=== PATIENT | female | born 2000 | race Caucasian/White ===

== ENCOUNTER 2025-03-06 20:12 | Inpatient (IN) ==
[2025-03-06] MEDS ORDERED: TRANEXAMIC ACID IN NACL 1,000 MG/100 ML BAG IV PRN (20:50)
[2025-03-06] MEDS ORDERED: CARBOPROST TROMETHAMINE 250 MCG/ML VIAL IM PRN (20:50)
[2025-03-06] MEDS ORDERED: hydrALAZINE INJ 20 MG/ML VIAL IVP PRN (20:50)
[2025-03-06] MEDS ORDERED: TERBUTALINE 1 MG/ML VIAL SUBQ PRN (20:50)
[2025-03-06] MEDS ORDERED: miSOPROStoL 200 MCG TABLET PR PRN (20:50)
[2025-03-06] MEDS ORDERED: NIFEdipine 10 MG CAPSULE PO PRN (20:50)
[2025-03-06] MEDS ORDERED: lidocaine 1% 20 ML MDV ID PRN (20:50)
[2025-03-06] MEDS ORDERED: LACTATED RINGERS 1,000 ML IV PRN (20:50)
[2025-03-06] MEDS ORDERED: METHYLERGONOVINE 0.2 MG/ML VIAL IM PRN (20:50)
[2025-03-06] MEDS ORDERED: LABETALOL 20 MG/4 ML SYRINGE IVP PRN ×3 (20:50)
[2025-03-06] MEDS ORDERED: miSOPROStoL 200 MCG TABLET BC PRN (20:50)
[2025-03-06] MEDS ORDERED: OXYTOCIN 10 UNIT/ML VIAL IM PRN (20:50)
[2025-03-06] MEDS ORDERED: SODIUM CHLORIDE FLUSH 0.9% 10 ML SYRINGE IVP PRN (20:50)
[2025-03-06] MEDS ORDERED: OXYTOCIN/SODIUM CHLORIDE 500 ML IV PRN (20:50)
[2025-03-06] MEDS ORDERED: fentaNYL 100 MCG/2 ML VIAL IVP PRN (20:50)
[2025-03-06] MEDS: SODIUM CHLORIDE FLUSH 0.9% 10 ML SYRINGE IVP SCH (21:06)
--- NOTE | 2025-03-06 21:40 | HISTORY & PHYSICAL EXAMINATION ---
Admit History Smoking Status: Never smoker Meds/Allgy Home Medications Ambulatory Orders Medication Instructions Recorded Confirmed vits no.126-ferrous fum tab PO 09/07/2403/06 28 mg iron-folic acid 800 mcg tablet (Classic ) metoclopramide HCl 5 mg tablet 5 mg PO Q6H PRN nausea and 12/04/24 03/06/25 (Reglan) vomiting #30 tabs hydrocodone 5 mg-acetaminophen 325 1 - 2 tab PO Q4H [place] N pain #14 tabs 01/14/25 03/06/25 mg tablet gabapentin 100 mg capsule 100 mg PO BID abdominal pain #14 01/15/25 03/06/25 caps ferrous gluconate 236 mg (27 mg 236 mg PO .Every other Day #90 tabs 02/06/25 03/06/25 iron) tablet Allergies Allergies Allergy/AdvReac Type Severity Reaction Status Date / Time No Known Drug Allergies Allergy Verified 03/06/25 16:23 PFSH Active Problems All Active Problems (Updated 03/06/25 @ 16:52 by Shelbie Balderas CNM, AUDIO VISUAL EQUIPMENT RENTAL CLERK) Elevated blood pressure reading without diagnosis of hypertension (Acute) Encounter for screening for Streptococcus B (Acute) Acquired iron deficiency anemia due to decreased absorption (Acute) Headache (Acute) Dyspnea (Acute) Intermittent lightheadedness (Acute) Iron (Fe) deficiency anemia (Acute) Irregular heart rhythm (Acute) Rapid heart rate (Acute) 30 weeks gestation of (Acute) Biliary colic (Acute) Nausea and vomiting (Acute) Epigastric pain (Acute) Cholelithiasis (Acute) RSV infection (Acute) Acute upper respiratory infection (Acute) Hip pain (Acute) Sciatica associated with disorder of lumbosacral spine (Acute) Exposure to varicella zoster virus (VZV) (Acute) Hypoglycemic disorder (Acute) Supervision of normal (Acute) Positive test (Acute) Medical History Medical History (Updated 03/06/25 @ 16:52 by Shelbie Balderas CNM, AUDIO VISUAL EQUIPMENT RENTAL CLERK) Family history of cleft palate Family History Family History Brother Diabetes Mother Diabetes Sister Diabetes Daughter Age: 1y 11m Cleft palate Social History Social History (Updated 02/11/25 @ 13:46 by Lavonne Moura, RN) Smoking Status: Never smoker Second hand tobacco smoke exposure: No Do you dip or chew tobacco?: No Do you vape?: No Patient requests smoking cessation consult: No Initiate information on smoking cessation: No Living arrangement: At home Living Condition: With spouse/s.o. Relationship: Do you feel safe in your home environment?: Yes Suffered physical, verbal, emotional, or financial abuse?: No POLST Patient has POLST: No Plan for Labor Plan For Labor I expect patient to be DC'd or transferred within 96 hours.: Yes Plan for Labor: Tammy is a 24yo @ 37.5wks gestation by LMP c/w 1st trimester ultrasound who presents to [facility] for medical induction of labor secondary to gestational hypertension. She had her first elevated blood pressure in the clinic at her routine visit today (148/90) with repeat blood pressure 4 hours later 150/90. Her pre-eclampsia labs returned WNL. She has been a patient of [facility] for the duration of her which has been complicated by hyperemesis and cholelithiasis. She has a cholecystectomy planned . She has a history of a hemorrhage and she will be type and crossmatched with 2 units on hold upon admission. In addition, she has a hx of a baby with a cleft soft palate and will ensure stitch bonder machine operator helper is aware at the time of delivery. Upon arrival she is 2-3/60/-3, posterior and vertex with intact membranes. FHR category I with baseline 140s, moderate variability, + accels and no decels. No contractions appreciated via tocometry. She will be admitted to [facility] for medic al induction of labor with initiation of pitocin. She is unaccompanied today but her plans to present to be with her when labor becomes active. Dating criteria: LMP: 06/15/24 CHIVO by LMP: 03/22/25 US:08/10/24-BSUS c/w dates Final CHIVO: 03/22/25 OB History: : SAB G2: G1: 03/2024 . elective IOL @ 40wks. female, epidural. 8lb3oz. 17min second stage. 1300cc hemorrhage. No transfusion necessary however did receive iron infusion. Soft cleft palate surgically repaired at 11 months of age PROBLEMS: -Hx hemorrhage: -Type and cross x 2 units on admission. -Active management of the third stage. -Cholelithiasis -surgery planned. -Anemia @ 33 weeks- oral iron not well tolerated. Iron infusion ordered 02/14/2025 -Hx baby with cleft soft palate -Notify stitch bonder machine operator helper at time of delivery Prior history of a blood transfusion? No. Will accept blood transfusion in medical emergency. 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 Last pap 08/06/2024 WNL, denies hx abnormal pap. Denies history of gonorrhea, chlamydia, genital herpes, oral herpes or any other STI. Sexual partner does NOT have HSV (oral or genital). Medical Hx: pp hemorrhage Surgical Hx: none Social Hx: Monogamous with male partner. Stopped drinking alcohol due to . Denies current use of tobacco, marijuana or other recreational drugs. Reports that she is safe in current relationship. Family Hx: Diabetes - Brother, Mother, Sister. Denies family history of congenital anomalies, Cystic Fibrosis or chromosomal abnormalities. ALLERiES: NKDA MEDICATIONS: Albuterol, gabapentin, , reglan, hydrocodone course: Pre- Weight: 220 Blood type: A+ Antibody: Neg CBC: H/H: 12.2/37.6 plt:384 RUB: Non-imm VZV:Non imm HBsAg: Neg HepC: NR RPR/AB-EIA: NR HIV: Neg PAP:08/06/24 - normal GC/CT: Neg HSV: denies in self and partner Genetic testing: NIPT completed - normal per pt Covid: declines Flu: declines FAS: 11/10 Placenta: Anterior Cord: 3VC SILVINA: 21.1cm EFW: 452g; 79.4%tile 50gm OGCT: declined -A1C 4.6 RPR: NR CBC: 11.1/33.4/314 GBS: negative Delivery plan: Desires epidural for pain management. MOD: Anticipate Physical Exam: Normocephalic, atraumatic Heart RRR w/o M/G/R Lungs CTAB Abdomen gravid, soft, nontender FHR baseline 140s, moderate variability, + accels, no decels No contractions appreciated via tocometry SVE 2-3/60/-3 and vertex with intact membranes Bilateral LE's trace edema DTRs 2+, no clonus Mood is good 03/06 Labs: Hgb/Hct: 10.7/33.5 PLT: 210 Cr: 0.6 AST/ALT: 10/5 Pr/Cr ratio: 0.2 Assessment: 24yo @ 37.5wks gestation Gestational hypertension Hx hemorrhage w/o transfusion FHR Category I GBS negative Plan: Admit to [facility] for medical induction of labor. Initiate pitocin for induction of labor with titration per protocol. Type and crossmatch with 2 units on hold Continuous monitoring. Jacuzzi PRN. Nitrous oxide PRN. Epidural per maternal request. Anticipate .
[2025-03-06] MEDS ORDERED: OXYTOCIN/SODIUM CHLORIDE 500 ML IV ONE (21:46)
[2025-03-06] MEDS ORDERED: LACTATED RINGERS 1,000 ML ONE (21:46)
[2025-03-06] MEDS: LACTATED RINGERS 1,000 ML IV SCH (22:02)
[2025-03-06] MEDS: OXYTOCIN/SODIUM CHLORIDE 500 ML IV SCH (22:02)
[2025-03-07] MEDS ORDERED: LIDOCAINE 2%-EPI 1:100000 20 ML MDV ONE (08:12)
[2025-03-07] MEDS ORDERED: ROPIVACAINE 0.2% 200 MG/100 ML BAG EP ONE (08:12)
--- NOTE | 2025-03-07 08:59 | ANESTHESIA PROCEDURE NOTE ---
Pre-Anesthesia VS, & Labs Diagnosis Surgical Diagnosis:: Active labor Procedure Procedure: vaginal delivery Vitals Vital Signs: Temp Pulse Resp BP Pulse Ox 36.5 C 78 17 121/67 97 03/07/25 04:14 03/07/25 04:14 03/07/25 04:14 03/07/25 04:14 03/06/25 21:05 NPO NPO: Other (clear liquids during labor) Is Patient ?: Yes Lab Results Current Lab Results: Laboratory Tests 03/06/25 21:00: Blood Type A POSITIVE, Antibody Screen NEGATIVE, Crossmatch IS Only See Detail 03/06/25 17:19: Blood Type Recheck A POSITIVE Lab results reviewed: Yes Meds/Allgy Home Medications Ambulatory Orders Medication Instructions Recorded Confirmed vits no.126-ferrous fum tab PO 09/07/2403/06 28 mg iron-folic acid 800 mcg tablet (Classic ) metoclopramide HCl 5 mg tablet 5 mg PO Q6H PRN nausea and 12/04/24 03/06/25 (Reglan) vomiting #30 tabs hydrocodone 5 mg-acetaminophen 325 1 - 2 tab PO Q4H [place] N pain #14 tabs 01/14/25 03/06/25 mg tablet gabapentin 100 mg capsule 100 mg PO BID abdominal pain #14 01/15/25 03/06/25 caps ferrous gluconate 236 mg (27 mg 236 mg PO .Every other Day #90 tabs 02/06/25 03/06/25 iron) tablet Allergies Allergies Allergy/AdvReac Type Severity Reaction Status Date / Time No Known Drug Allergies Allergy Verified 03/06/25 16:23 PFSH Active Problems All Active Problems Elevated blood pressure reading without diagnosis of hypertension (Acute) Encounter for screening for Streptococcus B (Acute) Acquired iron deficiency anemia due to decreased absorption (Acute) Headache (Acute) Dyspnea (Acute) Intermittent lightheadedness (Acute) Iron (Fe) deficiency anemia (Acute) Irregular heart rhythm (Acute) Rapid heart rate (Acute) 30 weeks gestation of (Acute) Biliary colic (Acute) Nausea and vomiting (Acute) Epigastric pain (Acute) Cholelithiasis (Acute) RSV infection (Acute) Acute upper respiratory infection (Acute) Hip pain (Acute) Sciatica associated with disorder of lumbosacral spine (Acute) Exposure to varicella zoster virus (VZV) (Acute) Hypoglycemic disorder (Acute) Supervision of normal (Acute) Positive test (Acute) Medical History Medical History Family history of cleft palate Family History Family History Brother Diabetes Mother Diabetes Sister Diabetes Daughter Age: 1y 11m Cleft palate Social History Social History (Updated 02/11/25 @ 13:46 by Lavonne Moura, RN) Smoking Status: Never smoker Second hand tobacco smoke exposure: No Do you dip or chew tobacco?: No Do you vape?: No Patient requests smoking cessation consult: No Initiate information on smoking cessation: No Living arrangement: At home Living Condition: With spouse/s.o. Relationship: Do you feel safe in your home environment?: Yes Suffered physical, verbal, emotional, or financial abuse?: No POLST Patient has POLST: No Anesthesia Exam (Expanded) Exam General: Alert, Oriented x3 and Cooperative Dental: WNL Mouth Openin Fingerbreadth Neck Mobility: Normal Mallampati classification: II Thyromental Distance: 4-6 cm Exam Exam Vital Signs: Vital Signs x48h Temp Pulse Resp BP 03/07/25 04:14 36.5 C 78 17 121/67 Plan Plan Anesthesia Type: Epidural Consent for Procedure(s) Verified and Reviewed: Yes Code Status: Attempt Resuscitation ASA Classification ASA classification: 2-Mild systemic disease Is this case an emergency?: No
[2025-03-07] MEDS ORDERED: ePHEDrine 50 MG/ML VIAL IVP PRN (09:04)
[2025-03-07] MEDS ORDERED: ROPIVACAINE 0.2% 200 MG/100 ML BAG EP PRN (09:04)
[2025-03-07] MEDS ORDERED: ONDANSETRON 4 MG/2 ML VIAL IVP PRN (09:04)
[2025-03-07] MEDS ORDERED: NALOXONE 0.4 MG/ML VIAL IVP PRN (09:04)
--- NOTE | 2025-03-07 09:13 | PROVIDER PROGRESS NOTE ---
Labor Progress Note Labor Progress Note Labor Progress Note/Additional Text: S: Comfortable with epidural. Denies headache, visual disturbances, RUQ or epigastric pain. Feeling well overall and states she just wants to have a baby. Partner supportive at the bedside. O: FHR baseline 150s, moderate variability, + accels, no decels Contractions palpate moderate every 3-5 minutes with soft resting tone SVE 3-4/80/-1 AROM large amount of clear fluid @ 0902 Pitocin @ 14mU/min Occasional mild range elevated blood pressure A: 24yo @ 37.6wks gestation Gestational hypertension Early labor FHR Category I GBS negative P: Continue pitocin induction of labor. Maintain epidural for pain management. Continuous monitoring. Encouraged rotation in bed on peanut ball. Anticipate .
[2025-03-07] MEDS ORDERED: SIMETHICONE CHEW 80 MG TABLET PO PRN (12:05)
[2025-03-07] MEDS ORDERED: OXYTOCIN/SODIUM CHLORIDE 500 ML IV PRN (12:05)
--- NOTE | 2025-03-07 12:11 | DELIVERY NOTE ---
Delivery Note Delivery Outcome Delivery Date: 03/07/25 Delivery Time: 11:35 Delivery Comments (Free Text/Narrative) Delivery Comments (Free Text/Narrative): Labor: This 24 year old @ 37.6wks gestation by LMP c/w first trimester ultrasound presented to [facility] on 03/06/2025 at 2030 for medical induction of labor secondary to gestational hypertension. Cervix was 2-3/60/-1 and vertex with intact membranes. Pitocin initiated for induction of labor with a maximum infusion rate of 15mU/min. FHR demonstrated Category I pattern throughout labor. Normal labor course. Epidural placed per maternal request. AROM occurred @ 0902 and was noted to be a large amount of clear fluid. She progressed to c/c/+2 at 1132. : Normal SVB of viable female on 03/07/2025 @ 1135. No nucal cord. The was placed on maternal abdomen, stimulated, dried, and placed skin to skin. 's were 8/9 at 1 and 5 min respectively. Pitocin administered via IV for hemostasis. The umbilical cord was allowed to stop pulsating at which time it was doubly clamped by CNM and cut by FOB. Cord blood was obtained. 3VC. Fundal massage and gentle cord traction applied for active management of the third stage. Placenta delivered spontaneously and intact at 1140. QBL 600mL. Fourth stage: Uterine fundus firm and there is no excessive bleeding. The perineum, vagina, and cervix were inspected and found to have a 1st degree vaginal laceration on right vaginal floor that was bleeding significantly and which was repaired using a 3-[address]-1 needle, in standard fashion and under sterile conditions. Vaginal examination following repair was performed. Tissues well approximated. Hemostasis achieved. Skin to skin contact maintained. Both mother and baby were left in stable condition.
[2025-03-07] MEDS: HYDROCORTISONE 1% CREAM 28 GM TUBE TOP PRN (15:54)
[2025-03-07] MEDS: WITCH HAZEL/GLYCERIN 1 PAD TOP PRN (15:54)
[2025-03-07] MEDS: ACETAMINOPHEN 500 MG TABLET PO PRN (15:55)
[2025-03-07] MEDS: IBUPROFEN 800 MG TABLET PO PRN (15:55)
[2025-03-07 16:42] LABS: BASOPHILS # (AUTO) 0.1 10^3/uL (0.0-0.1); BASOPHILS % (AUTO) 0.4 %; EOSINOPHILS # (AUTO) 0.1 10^3/uL (0.0-0.7); EOSINOPHILS % (AUTO) 0.8 %; HCT - HEMATOCRIT 26.2 % (37.0-47.0); HGB - HEMOGLOBIN 8.7 g/dL (12.0-16.0); LYMPHOCYTES # (AUTO) 1.6 10^3/uL (1.5-3.5); LYMPHOCYTES % (AUTO) 10.6 %; MEAN CORPUSCULAR HEMOGLOBIN 27.6 pg (27.0-31.0); MEAN CORPUSCULAR HGB CONC 33.2 g/dL (32.0-36.0); MEAN CORPUSCULAR VOLUME 83.2 fL (81.0-99.0); MEAN PLATELET VOLUME 10.2 fL (7.9-10.8); MONOCYTES % (AUTO) 6.7 %; NEUTROPHILS # (AUTO) 12.4 10^3/uL (1.5-6.6); NEUTROPHILS % (AUTO) 80.7 %; PLT - PLATELET COUNT 294 10^3/uL (130-450); RED BLOOD COUNT 3.15 10^6/uL (4.20-5.40); RED CELL DISTRIBUTION WIDTH 14.4 % (12.0-15.0); WHITE BLOOD COUNT 15.3 x10^3/uL (4.8-10.8)
[2025-03-07 17:23] LABS: ALBUMIN/GLOBULIN RATIO 1.3 (1.0-2.2); BILIRUBIN,TOTAL 0.7 mg/dL (0.2-1.0); CALCIUM 8.4 mg/dL (8.5-10.3); CREATININE 0.6 mg/dL (0.6-1.3); POTASSIUM 3.9 mmol/L (3.5-4.5); TOTAL PROTEIN 5.3 g/dL (6.4-8.9)
[2025-03-07] MEDS: FERRIC GLUCONATE 125 MG in SODIUM CHLORIDE 0.9% 100ML 100 ML IV ONE (17:25)
--- NOTE | 2025-03-07 18:18 | PROVIDER PROGRESS NOTE ---
Subjective Subjective Subjective: Was called earlier by nursing team. Tammy has been dizzy and not making it out of bed. States this happened after her last delivery too. Worse when standing. Fine when lying down. No headache. VS stable. FF, small to scant rubra bleeding. Alert and orientated. Grateful for all the care on [facility]. CBC and CMP ordered. H&H drop from 10.7/33.5 to 8.7/26. CMP unremarkable. Had IV iron infusion scheduled with the MAC on Wednesday. Ordered IV iron infusion on &D, now infusing. RN encouraged oral hydration and eating meal. Discussed not ambulating out of bed without RN assistance. Current Medications Current Medications Current Medications: Current Medications Generic Name Dose Route Start Last Admin Trade Name Freq PRN Reason Stop Dose Admin Acetaminophen 1,000 mg 03/07/25 12:05 03/07/25 15:55 Acetaminophen 500 Mg Tablet PO 1,000 mg Q8HR PRN Administration Mild Pain or Fever>38C(100.4F) Carboprost Tromethamine 250 mcg 03/06/25 20:50 Carboprost Tromethamine 250 Mcg/Ml Vial IM .ONCE PRN Hemorrhage Docusate Sodium 100 mg 03/07/25 21:00 Docusate Sodium 100 Mg Capsule PO BID BRIANNA Ephedrine Sulfate 5 mg 03/07/25 09:04 Ephedrine 50 Mg/Ml Vial IVP Q5M PRN For SBP<100;give until SBP>100 Fentanyl 50 mcg 03/06/25 20:50 Fentanyl 100 Mcg/2 Ml Vial IVP Q1H PRN Severe Pain (score 7-10) Hydralazine HCl 5 - 10 mg 03/06/25 20:50 Hydralazine Inj 20 Mg/Ml Vial IVP Q20M PRN SBP> or= 160 OR DBP> or= 110 Protocol Hydrocortisone 1 applic 03/07/25 12:05 03/07/25 15:54 Hydrocortisone 1% Cream 28 Gm Tube TOP 1 tube QID PRN Administration PERINEAL REPAIR Lactated Ringer's 500 mls @ 999 mls/hr 03/06/25 20:50 Lr IV PRN PRN MaternalNeonatal Resuscitation Oxytocin/Sodium Chloride 500 mls @ 999 mls/hr 03/06/25 20:50 Pitocin/Sodium Chloride IV PRN PRN POST- HEMORR PREVENTION Protocol 999 MILLIUNIT/MIN Tranexamic Acid 1,000 mg in 100 mls @ 600 mls/hr 03/06/25 20:50 Tranexamic 1,000 Mg/100ml-Nacl IV Q30M PRN EBL >1200mL and within 3hr Lactated Ringer's 1,000 mls @ 100 mls/hr 03/06/25 22:00 03/07/25 07:36 Lr IV 100 mls/hr .Q10H BRIANNA Administration Oxytocin/Sodium Chloride 500 mls @ 2 mls/hr 03/06/25 21:30 03/07/25 12:05 Pitocin/Sodium Chloride IV 999 milliunit/min TITR BRIANNA 999 mls/hr Administration Protocol 2 MILLIUNIT/MIN Ropivacaine 200 mg in 100 mls @ 0 mls/hr 03/07/25 09:04 Naropin 0.2% EP PRN PRN PAIN Protocol Per Protocol Oxytocin/Sodium Chloride 500 mls @ 999 mls/hr 03/07/25 12:05 Pitocin/Sodium Chloride IV PRN PRN POST- HEMORR PREVENTION Protocol 999 MILLIUNIT/MIN Ferric Sodium Gluconate 110 mls @ 100 mls/hr 03/07/25 17:30 Complex 125 mg/ Sodium IV 03/07/25 18:35 Chloride ONCE ONE Ibuprofen 800 mg 03/07/25 12:05 03/07/25 15:55 Ibuprofen 800 Mg Tablet PO 800 mg Q8HR PRN Administration Moderate Pain (Level 4-6) Labetalol HCl 20 - 80 mg 03/06/25 20:50 Labetalol 20 Mg/4 Ml Syringe IVP Q10M PRN SBP> or= 160 OR DBP> or= 110 Protocol Labetalol HCl 20 mg 03/06/25 20:50 Labetalol 20 Mg/4 Ml Syringe IVP .ONCE PRN SBP> or= 160 OR DBP> or= 110 Protocol Labetalol HCl 20 - 40 mg 03/06/25 20:50 Labetalol 20 Mg/4 Ml Syringe IVP Q10M PRN SBP> or= 160 OR DBP> or= 110 Protocol Lidocaine HCl 20 ml 03/06/25 20:50 Lidocaine 1% 20 Ml Mdv ID 03/09/25 20:55 .ONCE PRN PERINEAL REPAIR Methylergonovine Maleate 0.2 mg 03/06/25 20:50 Methylergonovine 0.2 Mg/Ml Vial IM .ONCE PRN Hemorrhage Misoprostol 600 mcg 03/06/25 20:50 Misoprostol 200 Mcg Tablet BC .ONCE PRN Hemorrhage Misoprostol 800 mcg 03/06/25 20:50 Misoprostol 200 Mcg Tablet CO .ONCE PRN Hemorrhage Naloxone HCl 0.1 mg 03/07/25 09:04 Naloxone 0.4 Mg/Ml Vial IVP Q2M PRN RR<8 Nifedipine 10 - 20 mg 03/06/25 20:50 Nifedipine 10 Mg Capsule PO Q20M PRN SBP> or= 160 OR DBP> or= 110 Protocol Ondansetron HCl 4 mg 03/07/25 09:04 Ondansetron 4 Mg/2 Ml Vial IVP Q6HR PRN Nausea / Vomiting Oxytocin 10 unit 03/06/25 20:50 Oxytocin 10 Unit/Ml Vial IM .ONCE PRN Step One if no IV access. Simethicone 80 mg 03/07/25 12:05 Simethicone Chew 80 Mg Tablet PO TID PRN Gas Sodium Chloride 10 ml 03/06/25 20:50 Sodium Chloride Flush 0.9% 10 Ml Syringe IVP PRN PRN NEEDED PER PROVIDER ORDERS Sodium Chloride 10 ml 03/06/25 21:00 03/07/25 05:48 Sodium Chloride Flush 0.9% 10 Ml Syringe IVP Not Given Q8H BRIANNA Terbutaline Sulfate 0.25 mg 03/06/25 20:50 Terbutaline 1 Mg/Ml Vial SUBQ .ONCE PRN Tachystole Witch Loly/Glycerin 1 pad 03/07/25 12:05 03/07/25 15:54 Witch Loly/Glycerin 1 Pad TOP 1 pad PRN PRN Administration PERINEAL REPAIR Objective Vital Signs/Intake & Output Intake & Output: Intake & Output 03/04/25 03/05/25 03/06/25 03/07/25 23:59 23:59 23:59 23:59 Intake Total 1452 / 1452 Output Total 1050 / 1050 Balance 402 / 402 Weight (kg) 224 lb Lab Results 03/07/25 16:37 03/07/25 16:37 Other Labs: Lab Results x24hrs 03/07/25 03/06/25 03/06/25 Range/Units 16:37 21:00 17:19 WBC 15.3 H (4.8-10.8) x10^3/uL RBC 3.15 L (4.20-5.40) 10^6/uL Hgb 8.7 L (12.0-16.0) g/dL Hct 26.2 L (37.0-47.0) % MCV 83.2 (81.0-99.0) fL MCH 27.6 (27.0-31.0) pg MCHC 33.2 (32.0-36.0) g/dL RDW 14.4 (12.0-15.0) % Plt Count 294 (130-450) 10^3/uL MPV 10.2 (7.9-10.8) fL Neut # (Auto) 12.4 H (1.5-6.6) 10^3/uL Lymph # (Auto) 1.6 (1.5-3.5) 10^3/uL [place] # (Auto) 1.0 (0.0-1.0) 10^3/uL Eos # (Auto) 0.1 (0.0-0.7) 10^3/uL Baso # (Auto) 0.1 (0.0-0.1) 10^3/uL Absolute Nucleated RBC 0.00 x10^3/uL Nucleated RBC % 0.0 /100WBC Sodium 135 (135-145) mmol/L Potassium 3.9 (3.5-4.5) mmol/L Chloride 108 (101-111) mmol/L Carbon Dioxide 21 (21-32) mmol/L Anion Gap 6.0 (6-13) BUN 8 (6-20) mg/dL Creatinine 0.6 (0.6-1.3) mg/dL Estimated GFR (MDRD) 124 (>89) Glucose 96 (74-104) mg/dL Calcium 8.4 L (8.5-10.3) mg/dL Total Bilirubin 0.7 (0.2-1.0) mg/dL AST 10 (10-42) IU/L ALT 6 L (10-60) IU/L Alkaline Phosphatase 109 (42-121) IU/L Total Protein 5.3 L (6.4-8.9) g/dL Albumin 3.0 L (3.2-5.5) g/dL Globulin 2.3 (2.1-4.2) g/dL Albumin/Globulin Ratio 1.3 (1.0-2.2) Blood Type A POSITIVE Blood Type Recheck A POSITIVE Antibody Screen NEGATIVE Crossmatch IS Only See Detail
[2025-03-07 19:56] VITALS: O2SAT 98
[2025-03-07] MEDS: DOCUSATE SODIUM 100 MG CAPSULE PO SCH (21:53)
[2025-03-08 09:03] VITALS: TEMP 97.9
--- NOTE | 2025-03-08 10:35 | Discharge Summary ---
Discharge Summary HPI History of Present Illness: Date of Admission: 03/06/2025 Date of Discharge: 03/08/2025 Diagnosis on admission: 24yo @ 37.5wks gestation Gestational hypertension Hx hemorrhage w/o transfusion FHR Category I GBS negative Diagnosis on Discharge 24 yo s/p following medical IOL at 37+5 weeks gestation for gestational hypertension hemorrhage 1st degree laceration Unremarkable course. Physical exam: Normocephalic, atraumatic Lungs No increased work of breathing Normal uterine involution, FF below umbilicus scant rubra bleeding minimal perineal discomfort. Bilateral LE's no edema Mood is good. Labor: This 24 year old @ 37.6wks gestation by LMP c/w first trimester ultrasound presented to [facility] on 03/06/2025 at 2030 for medical induction of labor secondary to gestational hypertension. Cervix was 2-3/60/-1 and vertex with intact membranes. Pitocin initiated for induction of labor with a maximum infusion rate of 15mU/min. FHR demonstrated Category I pattern throughout labor. Normal labor course. Epidural placed per maternal request. AROM occurred @ 0902 and was noted to be a large amount of clear fluid. She progressed to c/c/+2 at 1132. : Normal SVB of viable female on 03/07/2025 @ 1135. No nucal cord. The was placed on maternal abdomen, stimulated, dried, and placed skin to skin. 's were 8/9 at 1 and 5 min respectively. Pitocin administered via IV for hemostasis. The umbilical cord was allowed to stop pulsating at which time it was doubly clamped by CNM and cut by FOB. Cord blood was obtained. 3VC. Fundal massage and gentle cord traction applied for active management of the third stage. Placenta delivered spontaneously and intact at 1140. QBL 600mL.Fourth stage: Uterine fundus firm and there is no excessive bleeding. The perineum, vagina, and cervix were inspected and found to have a 1st degree vaginal laceration on right vaginal floor that was bleeding significantly and which was repaired using a 3-[address]-1 needle, in standard fashion and under sterile conditions. Vaginal examination following repair was performed. Tissues well approximated. Hemostasis achieved. She has been doing well in her course. Initially she was pretty light headed although her vital signs remained stable. Known anemia and after additional blood loss following delivery, she received an IV iron infusion. She was able to shower, was ambulating in the room and tolerating a regular diet. She is urinating without difficulty and her lochia is normal. Her pain is well controlled without narcotic management. She will be discharged to home today on day 1 and encouraged IBU, tylenol and stool softeners PRN. She intends to follow up with [facility] in 1 week for in person visit. She has been given precautions to call if she has any new or worsening sx such as fevers, chills, abdominal pain, increasing bleeding, or foul smelling vaginal lochia. preeclamptic precautions reviewed as well. ALLERGIES Allergies Allergy/AdvReac Type Severity Reaction Status Date / Time No Known Drug Allergies Allergy Verified 03/06/25 16:23 MEDICATIONS Ambulatory Orders Medication Instructions Recorded Confirmed hydrocodone 5 mg-acetaminophen 325 1 - 2 tab PO Q4H TN N pain #14 tabs 01/14/25 03/07/25 mg tablet gabapentin 100 mg capsule 100 mg PO BID abdominal pain #14 01/15/25 03/07/25 caps PHYSICAL EXAM AT DISCHARGE Vital Signs: Vital Signs x48h Pulse BP 03/08/25 12:28 92 121/64 LABS 03/08/25 10:46 03/08/25 10:46 Discharge Plan Discharge Patient Disposition: 01 Home, Self Care Medically Cleared Date:: 03/08/25 Prescriptions: Continued hydrocodone-acetaminophen 5-325 mg tablet 1 - 2 tab PO Q4H PRN (Reason: pain) Qty: 14 0RF gabapentin 100 mg capsule 100 mg PO BID Qty: 14 1RF Print Language: Trinidadian Patient Instructions: Holds
[2025-03-08 10:53] LABS: HCT - HEMATOCRIT 25.4 % (37.0-47.0); HGB - HEMOGLOBIN 7.9 g/dL (12.0-16.0); MEAN CORPUSCULAR HEMOGLOBIN 26.7 pg (27.0-31.0); MEAN CORPUSCULAR HGB CONC 31.1 g/dL (32.0-36.0); MEAN CORPUSCULAR VOLUME 85.8 fL (81.0-99.0); MEAN PLATELET VOLUME 10.2 fL (7.9-10.8); RED BLOOD COUNT 2.96 10^6/uL (4.20-5.40); RED CELL DISTRIBUTION WIDTH 14.4 % (12.0-15.0); WHITE BLOOD COUNT 12.9 x10^3/uL (4.8-10.8)
[2025-03-08 11:06] LABS: ALBUMIN/GLOBULIN RATIO 1.3 (1.0-2.2); BILIRUBIN,TOTAL 0.4 mg/dL (0.2-1.0); CALCIUM 8.2 mg/dL (8.5-10.3); CREATININE 0.6 mg/dL (0.6-1.3); TOTAL PROTEIN 5.3 g/dL (6.4-8.9)
[2025-03-08] MEDS: VARICELLA VACCINE LIVE/PF 1,350 UNIT/0.5 ML VIAL SUBQ ONE (12:17)
[2025-03-08] MEDS: MEASLES,MUMPS & RUBELLA VACC 0.5 ML VIAL SUBQ ONE (12:18)
--- NOTE | 2025-03-08 13:05 | PHARMACY PROGRESS NOTE ---
Best Possible Medication History Admit Date and Time: 03/06/252054 Home Medications Medication Instructions Recorded Confirmed Type hydrocodone 5 mg-acetaminophen 325 1 - 2 tab PO Q4H SC N pain #14 tabs 01/14/25 03/07/25 Rx mg tablet Held on 03/07/25. Instructions: only takes during gallbladder flare ups gabapentin 100 mg capsule 100 mg PO BID abdominal pain #14 01/15/25 03/07/25 Rx Held on 03/07/25. caps Instructions: only takes during gallbladder flare ups Processed by: Nursing Medications reviewed in ED?: No Medication History completed: Yes Patient Interview: Completed [facility] Statement: As the person ultimately responsible for medication therapy, providers are able to order a medication from an existing home medication list in [facility] via the "Reconcile Routine" prior to Confirmation of that medication by faculty support coordinator. Such practice is discouraged except when the physician, in their clinical judgment, deems that a medical need exists for a medication without regard to previous use.
[2025-03-08 13:16] VITALS: BP 121/64
--- NOTE | 2025-03-08 14:52 | Labor Flowsheet ---
Labor Flowsheet Datetime Report Generated by CPN: 03/08/2025 14:51 Datetime: 03/08/2025 12:28 VITAL SIGNS NBP Sys/Lilian/Mean (mmHg): 121 : 64 : 79 Pulse: 92 LaborFlag: Labor Datetime: 03/07/2025 13:09 SpO2 (%): 99 Datetime: 03/07/2025 11:53 Stage 2 Comments: [employer] Datetime: 03/07/2025 11:37 Medication Comments: pit up Datetime: 03/07/2025 11:32 STAGE 2 Pushing: Coached on Pushing; Urge to Push Pushing Position: Pushing with Contractions Datetime: 03/07/2025 11:29 VAGINAL EXAM Dilatation (cm): 10.0 Effacement (%): 100 Station: 2 Exam by: A Sherrie CNM Datetime: 03/07/2025 11:21 Monitor Interventions for UA: [place] Adjusted Datetime: 03/07/2025 11:17 Patient Position/Activity: Right Tilt Patient Care Comments: peanutball Datetime: 03/07/2025 11:00 UTERINE ACTIVITY Monitor Mode: External Frequency (min): 2-3 Duration (sec): 60-90 Pattern: Normal: <= 5 Contractions in 10 Minutes FHR Baseline Rate : 150 Variability: Moderate 6-25 bpm Accelerations: 15X15 Decelerations: None Category: Category I Datetime: 03/07/2025 10:46 Communication Comments: provider reviewed strip Datetime: 03/07/2025 10:45 ASSESSMENT A Monitor Mode: External US Datetime: 03/07/2025 10:30 Pitocin Checklist: At Least 1 Acceleration of 15 bpm x 15 Seconds in 30 Minutes or Adequate Variability; No More than 1 Late Deceleration Occurred in Past 30 Minutes; No More than 2 Variable Decelerations > 60 Seconds in Duration and decreasing >60 bpm in 30 minutes; No More than 5 Uterine Contractions in 10 Minutes for any 20 Minute Interval; Uterus Palpates Soft between Contractions MEDICATIONS Pitocin (milliunits): Increased to @ 15 Datetime: 03/07/2025 10:00 Quality: Strong Datetime: 03/07/2025 09:30 FHR Baseline Changes: No Baseline Change Datetime: 03/07/2025 09:20 Monitor Interventions for FHR: Ultrasound Adjusted Datetime: 03/07/2025 09:17 I/O Interventions: Chow Cath Inserted Datetime: 03/07/2025 09:02 Membrane Status: Ruptured Membranes Rupture Method: Artificial Amniotic Fluid Color: Clear Amniotic Fluid Amount: Moderate Datetime: 03/07/2025 08:55 PAIN Pain Scale: 0 Pain Assessment Comments: not feeling contractions Datetime: 03/07/2025 08:43 Epidural Procedure: Test Dose Datetime: 03/07/2025 08:42 Comments: indeterminate due to maternal positioning for epidural Datetime: 03/07/2025 08:26 ANESTHESIA Anesthesia Plans: Local Datetime: 03/07/2025 08:19 Epidural Positioning: Sitting Datetime: 03/07/2025 08:14 Anesthesia Comments: in room Datetime: 03/07/2025 07:28 COMMUNICATION Communication: Call/Page Returned by Provider Datetime: 03/07/2025 07:23 Temperature (C): 36.5 Datetime: 03/07/2025 07:00 Stage of : Labor Resting Tone (Palpate): Relaxed Datetime: 03/07/2025 04:11 Vaginal Bleeding: None Cervix, Consistency: Soft Cervix, Position: Midposition Datetime: 03/07/2025 02:00 Contraction Comments: coupling of UCs noted Datetime: 03/06/2025 21:03 PATIENT CARE IV/Blood Work: IV Started; Labs Drawn with IV Start
== END 2025-03-08 13:50 | disposition home or self-care (01) | DRG 807 ==
LOC: WFO 20:12 → FBP 20:14
PROVIDERS: ADMIT Nurse Practitioner Obstetrics & Gynecology; ATTEND Nurse Practitioner Obstetrics & Gynecology
DX: Z87.59 Personal history of other complications of pregnancy, childbirth and the puerperium; O70.0 First degree perineal laceration during delivery; K80.20 Calculus of gallbladder without cholecystitis without obstruction; Z3A.37 37 weeks gestation of pregnancy; O13.4 Gestational [pregnancy-induced] hypertension without significant proteinuria, complicating childbirth; O99.62 Diseases of the digestive system complicating childbirth; Z37.0 Single live birth; O99.02 Anemia complicating childbirth